=== PATIENT | female | born 1980 | race Caucasian/White ===

== ENCOUNTER 2017-01-27 14:08 | Emergency (ER) | payer OTHER ==
[~2017-01-27] VITALS: Ht 167.6 cm; Wt 104.3 kg
--- NOTE | 2017-01-27 14:19 | ED GENERAL ADULT ---
History of Present Illness General Chief Complaint: Chest Pain Stated Complaint: CP Source: patient, family Exam Limitations: no limitations Vital Signs & Intake/Output Vital Signs & Intake/Output Vital Signs Date Time Temp Pulse Resp B/P B/P Pulse O2 O2 Flow FiO2 Mean Ox Delivery Rate 01/27 1733 97.3 76 24 152/84 95 Room Air 01/27 1504 98.0 80 22 126/58 96 Room Air 01/27 1439 96 Room Air 01/27 1409 97.8 98 20 151/92 98 Room Air ED Intake and Output 01/28 0000 01/27 1200 Intake Total Output Total Balance Patient 230 lb Weight Weight Reported by Patient Measurement Method Allergies Coded Allergies: NO KNOWN ALLERGIES (05/08/13) Reconcile Medications No Known Home Medications Triage Note: PT TO ROOM19 BIBA FROM HOME FOR EPISODE OF CHEST TIGHTNESS, DIZZINESS, SOB, PT FELT "BODY WAS ON FIRE" LASTED 45 MIN, STARTED 1HR PATIENT FINANCIAL SERVICES SPECIALIST. PT ARRIVED AAOx3, REPORTS MILD DIZZINESS AT THIS TIME, DENIES ANY PAIN, VSS. Triage Nurses Notes Reviewed? yes Onset: Just prior to arrival Duration: minute(s): (45) Timing: no prior history Injury Environment: home Severity: moderate Severity Numbers: 6 Modifying Factors: Improves With: other (TIME). : No Patient currently breastfeeds: No HPI: Patient is a 36-year-old female smoker, smokes 2 packs daily presenting to the emergency department with chief complaint of sudden onset of "my body feels like it was burning and red". Patient also reporting associated lightheadedness and felt like she was in a passout. She also had some shortness of breath and "chest numbness". Denies any visual changes. She reports symptoms last about 45 minutes and started after she started smoking a cigarette in which she rolls her own. Denies any other drug use besides occasional marijuana use. She did smoke marijuana this morning but has been feeling fine. Is asymptomatic and has been since EMS arrived at her home. No history of similar symptoms. No history of blood clots. Denies any unilateral leg swelling, no recent surgery or travel. No family history of blood clots. Denies any nausea or vomiting. No arm pain or weakness. Denies any confusion. She called her at the onset of symptoms he also call EMS. She did take one dose of aspirin at home prior to EMS arrival. Patient also reported associated palpitations. (REMINGTON CHAPMAN) Past History Travel History Traveled to [place] past 21 day No Medical History Any Pertinent Medical History? see below for history Neurological: NONE EENT: NONE Cardiovascular: NONE Respiratory: NONE Gastrointestinal: NONE Hepatic: NONE Renal: NONE Musculoskeletal: NONE Psychiatric: NONE Endocrine: NONE Surgical History Surgical History: non-contributory Psychosocial History What is your primary language Greenlandic Tobacco Use: Current Daily Use Daily Tobacco Use Amount/Type: => 5 Cigarettes daily Family History Hx Contributory? No (REMINGTON CHAPMAN) Review of Systems Review of Systems Constitutional: Reports: no symptoms. Comments Review of systems: See HPI, All other systems negative. Constitutional, no chills fever or weight loss HEENT: No visual changes no sore throat no congestion Cardiovascular: No chest pain , orthopnea or ankle swelling Skin, no jaundice no rashes Respiratory: No cough sputum or hemoptysis GI: No nausea no vomiting : No dysuria No hematuria Muscle skeletal: no back pain, no neck pain, Neurologic: No numbness no confusion Psych: No stress anxiety or depression,. Heme/endocrine: No bruising no bleeding no polyuria or polydipsia Immunology: No splenectomy or history of AIDS (REMINGTON CHAPMAN) Physical Exam Physical Exam General Appearance: well developed/nourished, no apparent distress, alert, awake , comfortable Comments: Obese person in no acute distress HEENT: Normal EENT exam, extraocular motion intact, no nystagmus. Pupils equally round and reactive to light and accommodation. Nose is atraumatic. External auditory canal and Tympanic membranes clear. Pharynx normal. No swelling or edema. Neck: Supple, no lymphadenopathy, normal range of motion without pain or tenderness Back: Nontender, no CVA tenderness. Cardiovascular: Regular rate and rhythms no murmurs rubs or gallops, normal JVP Respiratory: Chest nontender. No respiratory distress.breath sounds clear to auscultation bilaterally Abdomen: Soft, nontender nondistended, no appreciable organomegaly. Normal bowel sounds. No ascites, no rebound or guarding. Extremity: No edema, no calf tenderness to palpation, normal and equal pulses. Neuro: Alert oriented x3, motor sensory normal, cranial nerves II through XII grossly intact. Skin: No appreciable rash on exposed skin, skin is warm and dry. Psych: Mood and affect is normal, memory and judgment is normal. Core Measures ACS in differential dx? Yes CVA/TIA Diagnosis: No Severe Sepsis Present: No Septic Shock Present: No (REMINGTON CHAPMAN) Progress Differential Diagnoses I considered the following diagnoses in my evaluation of the patient: ACS, pulmonary embolus, reaction to tobacco, anxiety, electrolyte abnormality, cardiac arrhythmia Plan of Care: Orders Procedure Date/time Status Add-on Test (ER Only) 01/27 1800 Active TROPONIN LEVEL 01/27 1800 Complete EKG 01/27 1800 Active Add-on Test (ER Only) 01/27 1739 Active CULTURE,URINE 01/27 1656 Active TSH REFLEX 01/27 1435 Complete Telemetry/News Video Editor 01/27 1432 Active URINALYSIS 01/27 1419 Complete TROPONIN LEVEL 01/27 1419 Complete PROTHROMBIN TIME 01/27 1419 Complete COMPREHENSIVE METABOLIC PANEL 01/27 1419 Complete CBC WITHOUT DIFFERENTIAL 01/27 141 Complete EKG 01/27 1419 Active Laboratory Tests 01/27/17 1750: Troponin I < 0.01 01/27/17 165: Urine Color ORANG H, Urine Clarity CLEAR, Urine pH 5.5, Ur Specific [place] 1.010, Urine Protein 30 H, Urine Ketones TRACE H, Urine Nitrite POS H, Urine Bilirubin NEG@ICTO, Urine Urobilinogen 4.0 H, Ur Leukocyte Esterase TRACE H, Ur Microscopic SEDIMENT EXAMINED, Urine RBC 10-15 H, Urine WBC 1-3 H, Ur Epithelial Cells FEW, Urine Bacteria FEW H, Urine Hemoglobin LARGE H, Urine Glucose 100 H 01/27/17 1435: Anion Gap 12, Estimated GFR > 60, BUN/Creatinine Ratio 16.3, Glucose 98, Calcium 9.5, Total Bilirubin 0.4, AST 15, ALT 35, Alkaline Phosphatase 52, Troponin I < 0.01, Total Protein 6.6, Albumin 4.1, Globulin 2.5, Albumin/Globulin Ratio 1.6, TSH &T3 &Free T4 Intrp 0.845, PT 11.1, INR 1.06, CBC w Diff NO MAN DIFF REQ, RBC 4.26, MCV 90.4, MCH 31.4 H, RDW 12.7, MPV 9.6, Gran % 81.5 H, Lymphocytes % 12.9 L, Monocytes % 4.9, Eosinophils % 0.5, Basophils % 0.2, Absolute Granulocytes 8.8 H, Absolute Lymphocytes 1.4, Absolute Monocytes 0.5, Absolute Eosinophils 0.1, Absolute Basophils 0, PUBS MCHC 34.7 Microbiology 01/27 1656 URINE ROUT: Urine Culture - RES Diagnostic Imaging: Viewed by Me: Radiology Read. Discussed w/RAD: Radiology Read. CXR Impression: no acute abnormality, no infiltrates, normal size heart, normal mediastinum Initial ED EKG: SINUS RHYTHM AT 76 BPM, b[place] ABNORMALITY IN THE ANTERIOR LEADS Repeat EKG: unchanged Comments: Patient has been asymptomatic since arrival in the emergency department. Repeat troponin and EKG at her unchanged and negative. No signs of cardiac arrhythmia here in the emergency department. Thyroid function is within normal range. Patient will follow up with cardiology for Holter monitor. She'll return for any worsening symptoms or concerns. Educated on smoking cessation as well.D/W DR LAZARO DEVINE SHE AGREES WITH PLAN. PERC NEAGTIVE. (REMINGTON CHAPMAN) Departure Departure Time of Disposition: 1845 Disposition: HOME OR SELF CARE Condition: Stable Clinical Impression Primary Impression: Near syncope Secondary Impressions: Palpitations Referrals: PATIENT HAS NO PRIMARY CARE DR (PCP/Family) RHODA MARTÍNEZ MD Additional Instructions: Follow-up with cardiology he'll need to see cardiology as an outpatient for further evaluation. You may need Holter monitor. Increase fluids. Return for worsening symptoms or concerns. Quit smoking. Departure Forms: Customer Survey General Discharge Information Prescriptions: Current Visit Scripts No Known Home Medications (REMINGTON CHAPMAN) PA/COMMUNITY SERVICE ORGANIZATION DIRECTOR Co-Sign Statement Statement: ED Attending supervision documentation- [] I saw and evaluated the patient. I have also reviewed all the pertinent lab results and diagnostic results. I agree with the findings and the plan of care as documented in the PA's/COMMUNITY SERVICE ORGANIZATION DIRECTOR's documentation. [X] I have reviewed the ED Record and agree with the PA's/COMMUNITY SERVICE ORGANIZATION DIRECTOR's documentation. [] Additions or exceptions (if any) to the PAs/COMMUNITY SERVICE ORGANIZATION DIRECTOR's note and plan are summarized below: [] (LAZARO MORRIS,AMANDA) Critical Care Note Critical Care Note Critical Care Time: non-applicable (REMINGTON CHAPMAN)
[2017-01-27 14:54] LABS: ABSOLUTE BASOPHIL COUNT 0 /CUMM (0.0-0.2); ABSOLUTE EOSINOPHIL COUNT 0.1 /CUMM (0.0-0.7); ABSOLUTE GRANULOCYTE CT 8.8 /CUMM (1.4-6.5); ABSOLUTE LYMPH COUNT 1.4 /CUMM (1.2-3.4); ABSOLUTE MONOCYTE COUNT 0.5 /CUMM (0.10-0.60); BASOPHIL % 0.2 % (0.0-2.0); EOSINOPHIL % 0.5 % (0-5); GRANULOCYTE % 81.5 % (42.2-75.2); HEMATOCRIT 38.5 % (37-47); MEAN CORPUSCULAR HGB 31.4 PG (27.0-31.0); MEAN CORPUSCULAR HGB CONC 34.7 G/DL (33.0-37.0); MEAN CORPUSCULAR VOLUME 90.4 FL (81.0-99.0); MEAN PLATELET VOLUME 9.6 FL (7.4-10.4); PLATELET COUNT 155 /CUMM (130-400); RBC DISTRIBUTION WIDTH 12.7 % (11.5-14.5); RED BLOOD CELL CT 4.26 /CUMM (4.20-5.40); WHITE BLOOD CELL COUNT 10.8 /CUMM (4.8-10.8)
[2017-01-27 14:59] LABS: PT 11.1 SEC (9.4-12.5)
--- NOTE | 2017-01-27 15:31 | RADIOLOGY REPORT ---
EXAMINATION: XR CHEST CLINICAL INFORMATION: 36-year-old female with family history of lung cancer. Heavy smoking history. Shortness of breath. COMPARISON: None TECHNIQUE: PA and lateral erect views of the chest. FINDINGS: No significant abnormality is noted involving the heart, lungs, mediastinum, bony thorax or soft tissues. IMPRESSION: Unremarkable examination.
[2017-01-27 17:33] VITALS: BP 152/84
== END 2017-01-27 19:06 ==
LOC: ERH 14:08
PROVIDERS: Physician Assistant
DX: R55 Syncope and collapse (principal); R00.2 Palpitations
CPT/HCPCS: 81001; 81025; 87086; 93005; 93010